=== PATIENT | male | born 1985 | race Caucasian/White ===

== ENCOUNTER 2017-09-10 07:02 | Inpatient (IN) ==
[2017-09-10] MEDS ORDERED: 0.9 % SODIUM CHLORIDE 1,000 ML IV ONE (07:12)
--- NOTE | 2017-09-10 07:49 | Emergency Department Note ---
Weakness HPI - General Chief complaint: Weakness Stated complaint: Weakness Time Seen by Provider: 09/10/17 07:31 Source: patient Mode of arrival: ambulatory Limitations: no limitations - History of Present Illness HPI Narrative: 31-year-old male who has been out hunting 2 of his friends. Complaining of fever and chills decreased appetite-cough slight productive. Temperature is 102.7. Appears somewhat dehydrated, dry lips and tongue. States he has been drinking a lot of liquids however. Taken Tylenol ibuprofen. Denies history and states he was sleeping all day yesterday. Denies any urgency frequency or dysuria. Been no nausea vomiting no diarrhea constipation problems no hematemesis no melena. Is been complaining of a headache and some slight pain in the posterior neck but no obvious nuchal rigidity noted. No evidence of petechiae. Patient put in isolation toe spinal tap performed. Has no major illnesses he is not diabetic does smoke three quarters of a pack of cigarettes a day he is currently on no medications. Patient is alert and oriented answering questions appropriately there are no neurologic findings - Related Data Home Medications Medication Instructions Recorded Confirmed No Known Home Meds [No Known Home 09/10/17 09/10/17 Meds] Allergies Allergy/AdvReac Type Severity Reaction Status Date / Time No Known Drug Allergies Allergy Verified 09/10/17 07:07 Review of Systems All systems ED: reviewed and negative except as stated. Constitutional: Reports: fever, chills Eyes: Denies: eye pain ENT ED: Denies: ear pain, throat pain Cardiovascular: Denies: chest pain, palpitations, dyspnea on exertion Respiratory: Reports: cough. Denies: dyspnea, hemoptysis, phlegm Gastrointestinal: Denies: abdominal pain, nausea, vomiting, diarrhea, constipation, hematemesis, melena Genitourinary: Denies: urgency, dysuria, frequency Musculoskeletal: Denies: back pain Integumentary: Denies: rash Neurological: Reports: headache. Denies: weakness, numbness, paresthesias, confusion, abnormal gait Psychiatric: Denies: anxiety, depression Endocrine: Denies: fatigue Hematological/Lymphatic: Denies: easy bleeding Allergic/Immunologic: Denies: facial swelling Past Medical History - Past Medical History Medical history: Reports: non-contributory Surgical history ED: Reports: non-contributory Family history: Reports: non-contributory - Social History smoking status: Current every day smoker Packs per day: 0.7 Alcohol use: Reports: Occasionally (only 2-3 beers over past two days, no etoh yesterday or today) Drug use: Reports: none Physical Exam - General Limitations: no limitations General appearance: malaise - Head Head exam: atraumatic, normocephalic - Eye Eye exam: Present: normal appearance, PERRL - ENT ENT exam: normal exam, normal oropharynx, mucous membranes dry - Neck Neck exam: Present: normal inspection, full ROM, trachea midline, tenderness. Absent: meningismus, lymphadenopathy - Chest Chest inspection: Present: normal inspection, symmetric chest wall rise. Absent : tenderness - Respiratory Respiratory exam: Present: normal lung sounds bilaterally. Absent: respiratory distress, wheezes - Cardiovascular Cardiovascular exam: Present: regular rate, normal rhythm. Absent: bradycardia , tachycardia - Abdominal Exam Abdominal exam: Present: soft, normal bowel sounds. Absent: distention, tenderness, guarding, rebound, rigidity - Extremities Exam Extremities exam: Present: normal inspection, full ROM. Absent: tenderness - Back Exam Back exam: Present: normal inspection, full ROM. Absent: tenderness - Expanded Neurological Exam Patient oriented to: Present: person, place, time Speech: Present: fluid speech Cranial nerves: EOM function (II, III, IV, ): Normal, facial sensation (V): Normal, facial palsy (VII): Normal, gag reflex (IX): Normal, spinal accessory function (XI): Normal, tongue deviation (XII): Normal Cerebellar function: finger to nose: Normal Motor strength - LUE: 5/5 Motor strength - RUE: 5/5 Motor strength - LLE: 5/5 Motor strength - RLE: 5/5 Upper motor neuron exam: Babinski sign: Absent bilaterally Sensory exam upper extremity: Normal: light touch Sensory exam lower extremity: Normal: light touch DTR: 2+: patellar (L), patellar (R) Coma Scale Eye Opening: Spontaneous Coma Scale Motor Response: Obeys Commands Coma Scale Verbal Response: Oriented Coma Scale Total: 15 - Psychiatric Psychiatric exam: Present: normal affect, normal mood - Skin Skin exam: Present: warm, dry Course Vital Signs Temperature 102.2 F H 09/10/17 07:03 Pulse Rate 83 09/10/17 07:03 Respiratory Rate 18 09/10/17 07:03 Blood Pressure 131/75 09/10/17 07:03 Pulse Oximetry (%) 96 09/10/17 07:03 Temperature 102.1 F H 09/10/17 08:12 Pulse Rate 86 09/10/17 08:12 Respiratory Rate 23 H 09/10/17 08:12 Blood Pressure 134/75 09/10/17 07:31 Pulse Oximetry (%) 97 09/10/17 08:12 Weakness - MDM Narrative Medical decision making narrative: RESULTS OF LAB TESTS. SPINAL TAP BEING PERFORMED. AWAIT CSF ANALYSIS pT TRANSFERRED TO CARE OF [facility] AT 0900 - Lab Data Result diagrams: 09/10/17 07:10 09/10/17 07:10 Lab Results 09/10/17 09/10/17 09/10/17 Range/Units 07:10 07:10 07:10 WBC 9.9 (4.5-11.0) K/mcL RBC 4.54 (4.50-5.90) M/mcL Hgb 14.8 (13.5-16.5) g/dL Hct 42.9 (41.0-55.0) % MCV 94.5 (80.0-100.0) fL MCH 32.6 (26.0-34.0) pg MCHC 34.5 (31.0-36.0) g/dL RDW 12.4 (11.5-14.5) % Plt Count 154 (140-440) K/mcL MPV 10.1 (7.4-10.4) fL Total Counted 100 Seg Neutrophils % 83 H (38-78) % Band Neutrophils % Not Reportable Lymphocytes % 12 L (15-49) % Monocytes % (Manual) 5 (1-12) % Platelet Estimate Normal (NORMAL) RBC Morphology Normal (NORMAL) VBG Lactic Acid 0.9 (0.5-2.2) mmol/L Sodium 135 (133-145) mmol/L Potassium 3.7 (3.3-5.1) mmol/L Chloride 96 (96-108) mmol/L Carbon Dioxide 23 (22-30) mmol/L Anion Gap 16.0 (8-16) BUN 8 (6-20) mg/dl Creatinine 0.8 (0.7-1.2) mg/dl GFR Calculation 119 Glucose 110 H (70-105) mg/dL Calcium 9.1 (8.6-10.4) mg/dl Total Bilirubin 0.7 (0.0-1.0) mg/dL AST 20 (0-37) U/l ALT 17 (0-40) U/l Alkaline Phosphatase 38 L (39-117) U/L Total Protein 7.5 (5.9-8.4) gm/dL Albumin 4.2 (3.2-5.2) gm/dL Globulin 3.3 (2.2-3.7) gm/dL Albumin/Globulin Ratio 1.3 (1.0-2.3) Disposition Pt seen by RESPITE CARE PROVIDER/PA only: No
[2017-09-10 07:58] LABS: Mean Cell Volume 94.5 fL (80.0-100.0); Mean Corpuscular HGB Conc 34.5 g/dL (31.0-36.0); Mean Corpuscular Hemoglobin 32.6 pg (26.0-34.0); Platelet Count 154 K/mcL (140-440); RBC 4.54 M/mcL (4.50-5.90); Red Cell Distribution Width 12.4 % (11.5-14.5)
[2017-09-10] MEDS ORDERED: ACETAMINOPHEN 325 MG TABLET PO ONE (08:08)
[2017-09-10 08:19] LABS: ALT/SGPT 17 U/l (0-40); Albumin 4.2 gm/dL (3.2-5.2); Albumin/Globulin Ratio 1.3 (1.0-2.3); Alkaline Phosphatase 38 U/L (39-117); Blood Urea Nitrogen 8 mg/dl (6-20)
[2017-09-10 08:26] LABS: Lymphocytes % 12 % (15-49); Monocytes % (Manual) 5 % (1-12); Platelet Estimate NORMAL (NORMAL); RBC Morphology NORMAL (NORMAL); Segmented Neutrophils % 83 % (38-78)
[2017-09-10] MEDS: 0.9 % SODIUM CHLORIDE 1,000 ML IV SCH ×3 (08:57→20:37)
--- NOTE | 2017-09-10 09:43 | XRay Report ---
CLINICAL INFORMATION: Cough and fever COMPARISON: None. FINDINGS: Heart is accentuated by right rotation, lordotic positioning and portable technique. It is within normal limits. Mediastinum and pulmonary vessels are normal. The lungs are clear. No effusions IMPRESSION: Negative Interpreted and Authenticated by: Brett Terrazas 09/10/17
--- NOTE | 2017-09-10 09:48 | XRay Report ---
CLINICAL INFORMATION: Fever, neck stiffness and lethargy - evaluate for meningitis TECHNIQUE: The procedure and risks including the possibility of bleeding, infection and CSF leak resulting in positional headache requiring blood patch were explained to the patient. He understood and wished to proceed. With the patient in prone position on the fluoroscopy table, the skin overlying the right L2 interspace was fluoroscopically marked, prepped and locally anesthetized with 1% lidocaine using a 25-gauge needle. A 22-gauge spinal needle was then advanced under fluoroscopy through the right L2 interlaminar space into the thecal sac. 9 cc of clear CSF was aspirated and sent for requested studies in three separate tubes. The needle was then removed. Patient tolerated procedure well. IMPRESSION: Successful fluoroscopic guided lumbar puncture yielding 9 cc of clear CSF. No apparent complication Interpreted and Authenticated by: Brett Terrazas 09/10/17
[2017-09-10] MEDS ORDERED: VANCOMYCIN 1,000 MG in 0.9 % SODIUM CHLORIDE 250 ML IV ONE (10:37)
[2017-09-10] MEDS ORDERED: cefTRIAXone 1 GM in DEXTROSE 5% IN WATER 50 ML IV ONE ×2 (10:37→13:45)
[2017-09-10 10:38] LABS: Glucose,CSF 67 mg/dL (45-75)
[2017-09-10 11:07] LABS: Appearance,CSF HAZY; Nucleated Cells,CSF 893 /cumm (0-5); Nucleated Cells,CSF 903 /cumm (0-5); Red Blood Cell,CSF 0 /cumm (0-1); Red Blood Cell,CSF 32 /cumm (0-1)
[2017-09-10 11:09] LABS: Lymphocytes,CSF 32 % (40-80); Monocytes,CSF 24 % (15-45); Neutrophils,CSF 44 % (0-6); Total Cell Ct,CSF 100
[2017-09-10 11:10] LABS: Lymphocytes,CSF 32 % (40-80); Monocytes,CSF 32 % (15-45); Neutrophils,CSF 36 % (0-6); Total Cell Ct,CSF 100
[2017-09-10 11:17] LABS: Appearance,Urine CLEAR; Bacteria,Urine 0 /hpf (0); Bilirubin,Urine NEG (NEG); Color,Urine YELLOW; Glucose,Urine (UA) NEGATIVE (NEG); Leukocyte Esterase,Urine NEG /uL (NEG); Mucus,Urine MANY /hpf (0); Nitrate,Urine NEG (NEG); Protein,Urine NEG (NEG); Specific Gravity,Urine 1.014 (1.000-1.035); Urine Blood 0.03 mg/dL (<0.03); Urine RBC 2 /hpf (0-1); Urine Squamous Epithelial Cell < 1 /hpf (0-4); Urine WBC 1 /hpf (0-4); Urobilinogen,Urine NEG (NEG)
[2017-09-10] MEDS: HYDROmorphone 2 MG/ML SYRINGE IV PRN ×2 (11:30→12:25)
--- NOTE | 2017-09-10 11:40 | Emergency Department Note ---
General Adult HPI - General Chief complaint: Weakness Stated complaint: Weakness Time Seen by Provider: 09/10/17 07:31 Source: patient Mode of arrival: ambulatory Limitations: no limitations - Related Data Home Medications Medication Instructions Recorded Confirmed No Known Home Meds [No Known Home 09/10/17 09/10/17 Meds] Allergies Allergy/AdvReac Type Severity Reaction Status Date / Time No Known Drug Allergies Allergy Verified 09/10/17 07:07 Review of Systems Constitutional: Reports: fever, chills Eyes: Denies: eye pain ENT ED: Denies: ear pain, throat pain Cardiovascular: Denies: chest pain, palpitations, dyspnea on exertion Respiratory: Reports: cough. Denies: dyspnea, hemoptysis, phlegm Gastrointestinal: Denies: abdominal pain, nausea, vomiting, diarrhea, constipation, hematemesis, melena Genitourinary: Denies: urgency, dysuria, frequency Musculoskeletal: Denies: back pain Integumentary: Denies: rash Neurological: Reports: headache. Denies: weakness, numbness, paresthesias, confusion, abnormal gait Psychiatric: Denies: anxiety, depression Endocrine: Denies: fatigue Hematological/Lymphatic: Denies: easy bleeding Allergic/Immunologic: Denies: facial swelling Past Medical History - Past Medical History Medical history: Reports: non-contributory Surgical history ED: Reports: non-contributory - Social History smoking status: Current every day smoker Alcohol use: Reports: Occasionally (only 2-3 beers over past two days, no etoh yesterday or today) Drug use: Reports: none Physical Exam - General Limitations: no limitations General appearance: malaise Course Vital Signs Temperature 102.2 F H 09/10/17 07:03 Pulse Rate 83 09/10/17 07:03 Respiratory Rate 18 09/10/17 07:03 Blood Pressure 131/75 09/10/17 07:03 Pulse Oximetry (%) 96 09/10/17 07:03 Temperature 100.2 F H 09/10/17 09:37 Pulse Rate 67 09/10/17 09:47 Respiratory Rate 23 H 09/10/17 08:12 Blood Pressure 95/56 09/10/17 09:31 Pulse Oximetry (%) 94 09/10/17 09:47 Medical Decision Making - [facility] Narrative Medical decision making narrative: This patient has meningitis with a good chance that it may be bacterial. There were some gram-positive cocci seen on Gram stain. BC count was 900. Protein was elevated at 67. Patient has received vancomycin and Rocephin and will be admitted to the ICU by the hospitalist. - Lab Data Lab results reviewed: Yes I reviewed the patient's lab results. Result diagrams: 09/10/17 07:10 09/10/17 07:10 Lab Results 09/10/17 09/10/17 09/10/17 Range/Units 07:10 07:10 07:10 WBC 9.9 (4.5-11.0) K/mcL RBC 4.54 (4.50-5.90) M/mcL Hgb 14.8 (13.5-16.5) g/dL Hct 42.9 (41.0-55.0) % MCV 94.5 (80.0-100.0) fL MCH 32.6 (26.0-34.0) pg MCHC 34.5 (31.0-36.0) g/dL RDW 12.4 (11.5-14.5) % Plt Count 154 (140-440) K/mcL MPV 10.1 (7.4-10.4) fL Total Counted 100 Seg Neutrophils % 83 H (38-78) % Band Neutrophils % Not Reportable Lymphocytes % 12 L (15-49) % Monocytes % (Manual) 5 (1-12) % Platelet Estimate Normal (NORMAL) RBC Morphology Normal (NORMAL) VBG Lactic Acid 0.9 (0.5-2.2) mmol/L Sodium 135 (133-145) mmol/L Potassium 3.7 (3.3-5.1) mmol/L Chloride 96 (96-108) mmol/L Carbon Dioxide 23 (22-30) mmol/L Anion Gap 16.0 (8-16) BUN 8 (6-20) mg/dl Creatinine 0.8 (0.7-1.2) mg/dl GFR Calculation 119 Glucose 110 H (70-105) mg/dL Calcium 9.1 (8.6-10.4) mg/dl Total Bilirubin 0.7 (0.0-1.0) mg/dL AST 20 (0-37) U/l ALT 17 (0-40) U/l Alkaline Phosphatase 38 L (39-117) U/L Total Protein 7.5 (5.9-8.4) gm/dL Albumin 4.2 (3.2-5.2) gm/dL Globulin 3.3 (2.2-3.7) gm/dL Albumin/Globulin Ratio 1.3 (1.0-2.3) Urine Color Urine Appearance Urine pH (5.0-9.0) Ur Specific [place] (1.000-1.035) Urine Protein (NEG) mg/dL Urine Glucose (UA) (NEG) mg/dL Urine Ketones (NEG) mg/dL Urine Occult Blood (<0.03) mg/dL Urine Nitrate (NEG) Urine Bilirubin (NEG) mg/dL Urine Urobilinogen (NEG) mg/dL Ur Leukocyte Esterase (NEG) /uL Urine RBC (0-1) /hpf Urine WBC (0-4) /hpf Ur Squamous Epith Cells (0-4) /hpf Urine Bacteria (0) /hpf Urine Mucus (0) /hpf Ur Culture Indicated? CSF Source CSF Appearance CSF Color CSF RBC (0-1) /cumm CSF Diff Total Count CSF Total Nucleated Auto (0-5) /cumm CSF Neutrophils (0-6) % CSF Lymphocytes (40-80) % CSF Reactive Lymphs CSF Monocytes (15-45) % CSF Eosinophils % CSF Basophils CSF Macrophages CSF Plasma Cells CSF Diff Comment CSF Glucose (45-75) mg/dL CSF Total Protein (15.0-45) mg/dL 09/10/17 09/10/17 09/10/17 Range/Units 08:59 08:59 10:45 WBC (4.5-11.0) K/mcL RBC (4.50-5.90) M/mcL Hgb (13.5-16.5) g/dL Hct (41.0-55.0) % MCV (80.0-100.0) fL MCH (26.0-34.0) pg MCHC (31.0-36.0) g/dL RDW (11.5-14.5) % Plt Count (140-440) K/mcL MPV (7.4-10.4) fL Total Counted Seg Neutrophils % (38-78) % Band Neutrophils % Lymphocytes % (15-49) % Monocytes % (Manual) (1-12) % Platelet Estimate (NORMAL) RBC Morphology (NORMAL) VBG Lactic Acid (0.5-2.2) mmol/L Sodium (133-145) mmol/L Potassium (3.3-5.1) mmol/L Chloride (96-108) mmol/L Carbon Dioxide (22-30) mmol/L Anion Gap (8-16) BUN (6-20) mg/dl Creatinine (0.7-1.2) mg/dl GFR Calculation Glucose (70-105) mg/dL Calcium (8.6-10.4) mg/dl Total Bilirubin (0.0-1.0) mg/dL AST (0-37) U/l ALT (0-40) U/l Alkaline Phosphatase (39-117) U/L Total Protein (5.9-8.4) gm/dL Albumin (3.2-5.2) gm/dL Globulin (2.2-3.7) gm/dL Albumin/Globulin Ratio (1.0-2.3) Urine Color Yellow Urine Appearance Clear Urine pH 6.0 (5.0-9.0) Ur Specific [place] 1.014 (1.000-1.035) Urine Protein Neg (NEG) mg/dL Urine Glucose (UA) Negative (NEG) mg/dL Urine Ketones 80 A (NEG) mg/dL Urine Occult Blood 0.03 A (<0.03) mg/dL Urine Nitrate Neg (NEG) Urine Bilirubin Neg (NEG) mg/dL Urine Urobilinogen Neg (NEG) mg/dL Ur Leukocyte Esterase Neg (NEG) /uL Urine RBC 2 H (0-1) /hpf Urine WBC 1 (0-4) /hpf Ur Squamous Epith Cells < 1 (0-4) /hpf Urine Bacteria 0 (0) /hpf Urine Mucus Many A (0) /hpf Ur Culture Indicated? No CSF Source 1 3 CSF Appearance Hazy Hazy CSF Color Colorless Colorless CSF RBC 32 H 0 (0-1) /cumm CSF Diff Total Count 100 100 CSF Total Nucleated Auto 903 H 893 H (0-5) /cumm CSF Neutrophils 44 H 36 H (0-6) % CSF Lymphocytes 32 L 32 L (40-80) % CSF Reactive Lymphs Not Reportable Not Reportable CSF Monocytes 24 32 (15-45) % CSF Eosinophils % Not Reportable Not Reportable CSF Basophils Not Reportable Not Reportable CSF Macrophages Not Reportable Not Reportable CSF Plasma Cells Not Reportable Not Reportable CSF Diff Comment Not Reportable Not Reportable CSF Glucose 67 (45-75) mg/dL CSF Total Protein 64 H (15.0-45) mg/dL Disposition Pt seen by HEEL BRUSHER/PA only: No Clinical Impression: Meningitis Disposition: Xfer As Inpt ([facility]) Condition: Good Time of Disposition: 11:40
--- NOTE | 2017-09-10 12:26 | Internal Med History&Physical ---
Medical - H&P: HPI Patient information: Note initiated : 09/10/17 at 12:22 pm Service Date, if different from initiated Date: [] Patient: Riley Lainez 31 y/o M admitted on for Weakness. Chief Complaint: Headache, fever, weakness History of present illness: Mr. Lainez is a 31 year old M with no past medical history who presents from a camping trip with 3 days of systemic illness. History is obtained in interviewing the patient, discussing with his colleagues were present in the ED. Patient started getting sick about 3 days ago. He was aching with generalized myalgias, had a severe headache, to 9/10 in intensity. He felt feverish while he was out camping. He had a documented fever to over 102 in the ED. This morning he continued to be feverish, complaining of headache and was more confused and his friends brought him in to be evaluated. He had been camping in [place] hunting with several friends for about 1 week. He had been well up until Thursday. He continues to complain of headache and some neck stiffness, particularly with rotation of the neck. He feels dehydrated, those noted some increased urine output. He's had no nausea or vomiting, no abdominal pain. Has had no diarrhea. He's had no rashes, no ecchymoses. He did help packout a deer, but does not recall any tick bites. No one else on the trip was ill. He has no history of diabetes, chronic liver disease, immunosuppressed state. Location: head and systemic. Severity: severe. Quality: aching. Timing: Onset Thursday. Duration: continuous since onset. Assoc sx: fever. The emergency department, the patient underwent lumbar puncture showing between 800 and 900 nucleated cells (depending upon tube) with polys, lymphocytes and monocytes. Protein is elevated at 64, glucose is normal. The fluid was hazy in appearance. Stain shows gram-positive cocci (no comment on diplococci). He is being admitted for treatment of meningitis. - Constitutional Constitutional: Present: anorexia, fatigue, fever(s), lethargy, malaise - EENT Ears: Present: as per HPI. Absent: decreased hearing Nose, mouth and throat: Present: headache(s), neck pain. Absent: sinus pain, sinus pressure, sore throat - Cardiovascular Cardiovascular: Absent: chest pain, edema, palpatations - Respiratory Respiratory: Absent: cough, dyspnea, chest congestion - Gastrointestinal Gastrointestinal: Absent: abdominal pain, diarrhea, nausea, vomiting - Genitourinary Genitourinary: Present: urinary frequency. Absent: dysuria - Musculoskeletal Musculoskeletal: Present: myalgias, neck pain - Integumentary Integumentary: Absent: new lesions, rash, unusual bruising - Neurological Neurological: Present: confusion, headache(s), weakness (generalized). Absent: convulsions, focal weakness, sensory deficit - Endocrine Endocrine: Present: fatigue - Hematologic/Lymphatic Hematologic/Lymphatic: Absent: easy bleeding, easy bruising Medical - H&P: PMH Medical history: Fracture of arm Surgical history: None Pertinent family history: No DM, CAD, immunodeficiency Social history: Lives in [place], [place]. He was in the area of [place]. Smokes 1 pack per day. Has occasional alcohol, last drink a couple days ago. Medical - H&P: Meds Home Medications Medication Instructions Recorded Confirmed Type No Known Home Meds [No Known Home 09/10/17 09/10/17 History Meds] Allergies Allergy/AdvReac Type Severity Reaction Status Date / Time No Known Drug Allergies Allergy Verified 09/10/17 07:07 Medical - H&P: Exam - Constitutional Vitals: Temp Pulse Resp BP Pulse Ox 100.2 F H 67 23 H 95/56 94 09/10/17 09:37 09/10/17 09:47 09/10/17 08:12 09/10/17 09:31 09/10/17 09:47 General appearance: average body habitus, mild distress (ill appearing) - Head Head exam: Present: atraumatic, normal inspection - Eye Eye exam: Present: EOMI, PERRL. Absent: conjunctival injection, scleral icterus - ENT ENT exam: Present: mucous membranes moist, normal oropharynx - Neck Neck exam: Present: meningismus (mild), tenderness. Absent: lymphadenopathy, thyromegaly - Respiratory Respiratory exam: Present: normal respiratory exam. Absent: accessory muscle use, respiratory distress, rhonchi, wheezes - Cardiovascular Cardiovascular exam: Present: normal rate and rhythm. Absent: diastolic murmur , gallop, rubs, systolic murmur - GI/Abdominal GI/Abdominal exam: Present: normal bowel sounds, soft. Absent: distended, organomegaly, rebound, tenderness - Extremities Exam Extremities exam: Present: full ROM, normal inspection, neurovascular intact. Absent: calf tenderness, joint swelling, pedal edema - Back Exam Back exam: Present: normal inspection. Absent: CVA tenderness (L), CVA tenderness (R) - Neurological Exam Neurological exam: Present: CN II-XII intact, oriented X3, reflexes normal. Absent: alert (mildly drowsy), motor sensory deficit - Expanded Neurological Exam DTR: bicep (L): 2+, bicep (R): 2+, brachioradialis (L): 2+, brachioradialis (R) : 2+, patellar (L): 2+, patellar (R): 2+ Coma Scale Eye Opening: Spontaneous Coma Scale Motor Response: Obeys Commands Coma Scale Verbal Response: Oriented Coma Scale Total: 15 - Skin Skin exam: Absent: abrasion, diaphoretic, mottled, petechiae Additional comments: No purpura, no bulls-eye rashes, no exanthem Medical - H&P: Reslt - Labs CBC & Chem 7: 09/10/17 07:10 09/10/17 07:10 Labs: Short CBC 09/10/17 Range/Units 07:10 WBC 9.9 (4.5-11.0) K/mcL Hgb 14.8 (13.5-16.5) g/dL Hct 42.9 (41.0-55.0) % Plt Count 154 (140-440) K/mcL BMP 09/10/17 07:10 Sodium 135 Potassium 3.7 Chloride 96 Carbon Dioxide 23 BUN 8 Creatinine 0.8 Glucose 110 H Calcium 9.1 Liver Function 09/10/17 Range/Units 07:10 Total Bilirubin 0.7 (0.0-1.0) mg/dL AST 20 (0-37) U/l ALT 17 (0-40) U/l Alkaline Phosphatase 38 L (39-117) U/L Albumin 4.2 (3.2-5.2) gm/dL Urine 09/10/17 Range/Units 10:45 Urine Color Yellow Urine Appearance Clear Urine pH 6.0 (5.0-9.0) Ur Specific [place] 1.014 (1.000-1.035) Urine Protein Neg (NEG) mg/dL Urine Glucose (UA) Negative (NEG) mg/dL CSF, tube 1, hazy, colorless, 903 nucleated cells, 32 red cells, 44% neutrophils , 32% lymphocytes, 24% neutrophils. Glucose 67, total protein 64. CSF, tube 3, 893 nucleated cells, no red cells, 36% neutrophils, 32% lymphocytes , 32% monocytes. CSF Gram stain, many polys, many mononuclear white cells, rare gram-positive cocci. Discussed with the micro-lab, these are gram-positive cocci in pairs. - Imaging and Cardiology Chest x-ray Status: image reviewed by me Additional comments: IMPRESSION: Negative Medical - H&P: A/P (1) Meningitis Problem details: GPC on gram stain Current visit: Yes Status: Acute - Narrative A/P Narrative: 31-year-old male presents with 3 days of fever, myalgias, headache, neck stiffness. 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 Meningitis. Gram-positive cocci seen on Gram stain. Glucose not significantly decrease, protein only mildly elevated, patient is ill but mentating and neurologic intact. Given these findings and timeframe, possible pneumococcal meningitis, though still covering for meningococcal disease. Patient has been out hunting, no known tick exposures. Given results of Gram stain, less likely to be viral. He is receiving vancomycin and ceftriaxone in the emergency department. He does not have chronic liver disease, diabetes or other immunosuppressive state to suggest listeria as a cause. Plan: -Admission, telemetry status to the ICU -Continue with ceftriaxone, 2 g IV every 12 hours -Continue with vancomycin dose per pharmacy -We will also cover with doxycycline until culture results are back, on the off chance this could be a tick borne illness -Follow-up cultures -If meningococcal, public health will need to reach contacts. His 2 friends were given an Rx for ciprofloxacin in the ED, but there were several others who had left camp by the time he became ill on Thursday. Prophylaxis: PPI, Lovenox CODE STATUS is full code
[2017-09-10] MEDS ORDERED: VANCOMYCIN PER PHARMACY IV SCH (13:30)
[2017-09-10] MEDS ORDERED: ONDANSETRON 4 MG/2 ML VIAL IV PRN (13:30)
[2017-09-10] MEDS ORDERED: ACETAMINOPHEN 325 MG TABLET PO PRN (13:30)
[2017-09-10] MEDS: DOXYCYCLINE 100 MG in DEXTROSE 5% IN WATER 100 ML IV SCH ×2 (14:31→22:17)
[2017-09-10] MEDS: HYDROcodone/APAP 5/325MG TABLET PO PRN (17:30)
[2017-09-10] MEDS ORDERED: IBUPROFEN 600 MG TABLET PO ONE (19:47)
[2017-09-10] MEDS: IBUPROFEN 600 MG TABLET PO ONE ×2 (19:48→20:20)
[2017-09-10] MEDS: VANCOMYCIN 1,500 MG in 0.9 % SODIUM CHLORIDE 500 ML IV SCH (21:20)
[2017-09-10] MEDS: cefTRIAXone 2 GM in DEXTROSE 5% IN WATER 50 ML IV SCH (21:20)
[2017-09-11] MEDS: 0.9 % SODIUM CHLORIDE 1,000 ML IV SCH ×4 (02:15→22:00)
[2017-09-11] MEDS: ACETAMINOPHEN 1,000 MG/100 ML BOTTLE IV PRN ×2 (04:10→21:59)
[2017-09-11 05:20] LABS: Mean Cell Volume 97.1 fL (80.0-100.0); Mean Corpuscular HGB Conc 34.2 g/dL (31.0-36.0); Mean Corpuscular Hemoglobin 33.2 pg (26.0-34.0); Platelet Count 131 K/mcL (140-440); RBC 4.06 M/mcL (4.50-5.90); Red Cell Distribution Width 12.6 % (11.5-14.5)
[2017-09-11] MEDS ORDERED: KETOROLAC 15 MG/ML VIAL ONE (05:35)
[2017-09-11 05:41] LABS: ALT/SGPT 15 U/l (0-40); Albumin 3.6 gm/dL (3.2-5.2); Albumin/Globulin Ratio 1.1 (1.0-2.3); Alkaline Phosphatase 40 U/L (39-117); Blood Urea Nitrogen 6 mg/dl (6-20)
[2017-09-11 05:59] LABS: Band Neutrophils % 2 % (0-10); Basophils % (Manual) 1 % (0-2); Lymphocytes % 32 % (15-49); Monocytes % (Manual) 12 % (1-12); Platelet Estimate DECREASED (NORMAL); RBC Morphology NORMAL (NORMAL); Segmented Neutrophils % 53 % (38-78)
[2017-09-11] MEDS: HYDROcodone/APAP 5/325MG TABLET PO PRN ×2 (06:57→15:01)
[2017-09-11] MEDS: PANTOPRAZOLE 40 MG TABLET PO SCH (07:45)
[2017-09-11] MEDS: ENOXAPARIN 40 MG/0.4 ML SYRINGE SQ SCH (09:28)
[2017-09-11] MEDS: DOXYCYCLINE 100 MG in DEXTROSE 5% IN WATER 100 ML IV SCH ×2 (09:29→21:25)
[2017-09-11] MEDS: NICOTINE 14 MG PATCH TOPICAL SCH (09:31)
[2017-09-11] MEDS ORDERED: FLU VACC QS2017-18 36MOS UP/PF 60 MCG/0.5 ML SYRINGE IM ONE (10:00)
[2017-09-11] MEDS: cefTRIAXone 2 GM in DEXTROSE 5% IN WATER 50 ML IV SCH ×2 (10:46→20:15)
[2017-09-11] MEDS: KETOROLAC 15 MG/ML VIAL IV PRN ×3 (10:53→22:15)
[2017-09-11] MEDS: VANCOMYCIN 1,500 MG in 0.9 % SODIUM CHLORIDE 500 ML IV SCH ×2 (11:23→20:14)
--- NOTE | 2017-09-11 11:43 | Internal Med Progress Note ---
Medical - PN: Subj Patient information: Note initiated : 09/11/17 at 11:36 am Service Date, if different from initiated Date: [] Patient: Riley Lainez 31 y/o M admitted on 09/10/17 for Weakness/Meningitis. Chief Complaint: [] Interval history: Mr. Lainez is a 31 year old M with no past medical history who presents from a camping trip with 3 days of systemic illness. History is obtained in interviewing the patient, discussing with his colleagues were present in the ED. Patient started getting sick about 3 days ago. He was aching with generalized myalgias, had a severe headache, to 9/10 in intensity. He felt feverish while he was out camping. He had a documented fever to over 102 in the ED. This morning he continued to be feverish, complaining of headache and was more confused and his friends brought him in to be evaluated. He had been camping in [place] with several friends for about 1 week. He had been well up until Thursday. He continues to complain of headache and some neck stiffness, particularly with rotation of the neck. He feels dehydrated, those noted some increased urine output. He's had no nausea or vomiting, no abdominal pain. Has had no diarrhea. He's had no rashes, no ecchymoses. He did help packout a deer, but does not recall any tick bites. No one else on the trip was ill. He has no history of diabetes, chronic liver disease, immunosuppressed state. Location: head and systemic. Severity: severe. Quality: aching. Timing: Onset Thursday. Duration: continuous since onset. Assoc sx: fever. The emergency department, the patient underwent lumbar puncture showing between 800 and 900 nucleated cells (depending upon tube) with polys, lymphocytes and monocytes. Protein is elevated at 64, glucose is normal. The fluid was hazy in appearance. Stain shows gram-positive cocci (no comment on diplococci). He is being admitted for treatment of meningitis. September 11 Patient seen examined, no acute overnight events, reamined febrile but this AM is better, on IV tylenol, and cooling blankets. remains on broad sepctrum abx, clinically better still has headache and some photophobia, but mental status is better as per nursing and patients friends. csf microbiology pending. labs reviewed, wbc mildly elevated today. Pertinent ROS: present headache, no dizziness Denies chest pain, palpitations Denies cough or shortness of breath Denies abdominal pain, nausea or vomiting. - Constitutional Vitals: Vital Signs Temp Pulse Resp BP Pulse Ox 98.5 F 54 L 16 151/90 99 09/11/17 11:08 09/11/17 11:08 09/11/17 11:08 09/11/17 11:08 09/11/17 11:08 Period Temp Pulse Resp BP Sys/Knowles Pulse Ox Last 24 Hr 97.9 F-103.5 F 54-74 15- 109-151/58-90 95-100 Intake and Output 09/10/17 09/11/17 09/11/17 21:59 05:59 13:59 Intake Total 1470 / 1470 1750 / 1750 1274 / 1274 Output Total 1949 1225 / 1225 325 / 325 Balance -480 / -480 525 / 525 949 / 949 Weight 201 lb 14.4 oz Intake & Output: Intake & Output 09/10/17 09/11/17 09/11/17 21:59 05:59 13:59 Intake Total 1470 / 1470 1750 / 1750 1274 / 1274 Output Total 1949 1225 / 1225 325 / 325 Balance -480 / -480 525 / 525 949 / 949 Weight 201 lb 14.4 oz Intake: IV 200 / 200 1700 / 1700 1054 / 1054 Sodium Chloride 0.9% 1,000 ml @ 1000 / 1000 904 / 904 125 mls/hr IV .Q8H [facility] Rx#: [id number] Vibramycin 100 mg In Dextrose 5 100 / 100 100 / 100 100 / 100 % in Water 100 ml @ 100 mls/hr IV Q12H [facility] Rx#:[id number] Vancomycin 1,500 mg In Sodium 500 / 500 Chloride 0.9% 500 ml @ 333.3 mls/hr IV Q12H [facility] Rx#: [id number] Rocephin 1 gm In Dextrose 5% in 50 / 50 Water 50 ml @ 100 mls/hr IV ONCE ONE Rx#:[id number] Rocephin 2 gm In Dextrose 5% in 50 / 50 50 / 50 Water 50 ml @ 100 mls/hr IV Q12H [facility] Rx#:[id number] Oral 420 / 420 50 / 50 220 / 220 IV - Manual Only 850 / 850 Output: Void Amount 1950 / 1950 1225 / 1225 325 / 325 Other: Meal Breakfast Percent of Meal Consumed 100% # Bowel Movements 0 Exam: Constitutional; Afebrile, cooperative, alert, not in distress. Eyes- No icterus, , No periorbital swelling Ears- Ext ear normal, hearing normal to conversation. Neck- Midline trachea, supple Respiratory system: Air Entry equal on both sides, No crackles or wheezing, no rhonchi. CVS- Rate rhythm regular, S1,S2 heard, no gallop, no rub. 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 Medical - PN: Obj Da - Labs CBC & Chem 7: 09/11/17 04:00 09/11/17 04:00 Labs: Abnormal Lab Results 09/11/17 09/10/17 09/10/17 04:00 10:45 08:59 WBC 11.3 H RBC 4.06 L Hct 39.4 L Plt Count 131 L Seg Neutrophils % Lymphocytes % Platelet Estimate Decreased A Glucose Alkaline Phosphatase Urine Ketones 80 A Urine Occult Blood 0.03 A Urine RBC 2 H Urine Mucus Many A CSF RBC CSF Total Nucleated Auto 893 H CSF Neutrophils 36 H CSF Lymphocytes 32 L CSF Total Protein 09/10/17 09/10/17 09/10/17 08:59 07:10 07:10 WBC RBC Hct Plt Count Seg Neutrophils % 83 H Lymphocytes % 12 L Platelet Estimate Glucose 110 H Alkaline Phosphatase 38 L Urine Ketones Urine Occult Blood Urine RBC Urine Mucus CSF RBC 32 H CSF Total Nucleated Auto 903 H CSF Neutrophils 44 H CSF Lymphocytes 32 L CSF Total Protein 64 H Meds: Medications Hydrocodone Bitart/Acetaminophen ([place] 5/325mg) 1 tab PO Q4HP PRN PRN Reason: Pain Last Admin: 09/11/17 06:57 Dose: 1 tab Enoxaparin Sodium (Lovenox) 40 mg SQ DAILY [facility] [place] Last Admin: 09/11/17 09:28 Dose: 40 mg Ceftriaxone Sodium 2 gm/ (Dextrose) 50 mls @ 100 mls/hr IV Q12H [facility] Last Infusion: 09/11/17 11:20 Dose: Infused Doxycycline Hyclate 100 mg/ (Dextrose) 100 mls @ 100 mls/hr IV Q12H [facility] [place] Last Infusion: 09/11/17 10:30 Dose: Infused Sodium Chloride (Sodium Chloride 0.9%) 1,000 mls @ 125 mls/hr IV .Q8H [facility] [place] Last Infusion: 09/11/17 11:28 Dose: 125 mls/hr Vancomycin HCl 1,500 mg/ (Sodium Chloride) 500 mls @ 333.3 mls/hr IV Q12H [facility] [place] Last Admin: 09/11/17 11:23 Dose: 250 mls/hr Acetaminophen (Ofirmev) 1,000 mg in 100 mls @ 200 mls/hr IV Q6HP PRN PRN Reason: PAIN/FEVER > 101 Last Infusion: 09/11/17 04:40 Dose: Infused Ketorolac Tromethamine (Toradol) 15 mg IV Q6 PRN PRN Reason: headache Stop: 09/12/17 18:01 Last Admin: 09/11/17 10:53 Dose: 15 mg Morphine Sulfate (Morphine) 2 mg IV Q2HP PRN PRN Reason: Pain Last Admin: 09/10/17 22:16 Dose: 2 mg Nicotine (Nicoderm) 14 mg TOPICAL DAILY@1000 [facility] [place] Last Admin: 09/11/17 09:31 Dose: Not Given Ondansetron HCl (Zofran) 4 mg IV Q4HP PRN PRN Reason: Nausea And Vomiting Pantoprazole Sodium (Protonix) 40 mg PO QAMAC [facility] [place] Last Admin: 09/11/17 07:45 Dose: 40 mg Vancomycin HCl (Vancomycin Per Pharmacy) 1 order IV UD [facility] Medical - PN: A/P - Time Spent With Patient Total time spent is greater than 50% in coordination of care (as documented) at patient's floor/unit and/or counseling patient: - Narrative A/P Narrative: A/P Acute Bacterial Meningitis Sepsis Bardycardia Plan Treat with vanco/ rocephin and doxy for now, await culture results, patient has gpc in pairs on gram stain. descalate abx as per culture, no e/o meningococcus. clinically improving check tsh for low hr, likely strong vagal response in young individual, improves with activity and normal bp. dvt enoxaparin full code Medical - PN: Qual - Stroke Symptom Onset Unknown: No - VTE Deep Vein Thrombosis/Pulmonary Embolism Present on Admission: No
[2017-09-12] MEDS: HYDROcodone/APAP 5/325MG TABLET PO PRN ×4 (02:20→19:28)
[2017-09-12] MEDS: ACETAMINOPHEN 1,000 MG/100 ML BOTTLE IV PRN (04:31)
[2017-09-12] MEDS: 0.9 % SODIUM CHLORIDE 1,000 ML IV SCH ×4 (07:12→20:09)
[2017-09-12] MEDS: PANTOPRAZOLE 40 MG TABLET PO SCH (07:51)
[2017-09-12] MEDS ORDERED: MAGNESIUM HYDROXIDE 30 ML ORAL.SUSP PO PRN ×2 (08:03→13:30)
--- NOTE | 2017-09-12 08:16 | Internal Med Progress Note ---
Medical - PN: Subj Patient information: Note initiated : 09/12/17 at 8:13 am Service Date, if different from initiated Date: [] Patient: Riley Lainez 31 y/o M admitted on 09/10/17 for Weakness/Meningitis. Chief Complaint: [] Interval history: Mr. Lainez is a 31 year old M with no past medical history who presents from a camping trip with 3 days of systemic illness. History is obtained in interviewing the patient, discussing with his colleagues were present in the ED. Patient started getting sick about 3 days ago. He was aching with generalized myalgias, had a severe headache, to 9/10 in intensity. He felt feverish while he was out camping. He had a documented fever to over 102 in the ED. This morning he continued to be feverish, complaining of headache and was more confused and his friends brought him in to be evaluated. He had been camping in [place] with several friends for about 1 week. He had been well up until Thursday. He continues to complain of headache and some neck stiffness, particularly with rotation of the neck. He feels dehydrated, those noted some increased urine output. He's had no nausea or vomiting, no abdominal pain. Has had no diarrhea. He's had no rashes, no ecchymoses. He did help packout a deer, but does not recall any tick bites. No one else on the trip was ill. He has no history of diabetes, chronic liver disease, immunosuppressed state. Location: head and systemic. Severity: severe. Quality: aching. Timing: Onset Thursday. Duration: continuous since onset. Assoc sx: fever. The emergency department, the patient underwent lumbar puncture showing between 800 and 900 nucleated cells (depending upon tube) with polys, lymphocytes and monocytes. Protein is elevated at 64, glucose is normal. The fluid was hazy in appearance. Stain shows gram-positive cocci (no comment on diplococci). He is being admitted for treatment of meningitis. September 11 Patient seen examined, no acute overnight events, reamined febrile but this AM is better, on IV tylenol, and cooling blankets. remains on broad sepctrum abx, clinically better still has headache and some photophobia, but mental status is better as per nursing and patients friends. csf microbiology pending. labs reviewed, wbc mildly elevated today. September 12 Patient seen examined, sitting comfortably in the chair having breakfast, complaints of headache and some photophobia but no other complaints had some constipation and prn milk of mag given. Patient labs reviewed wbc 9.2, improved from yesterday rest unremarkable csf culture still pending Pt remains febrile with Tmax of 102.3 this AM, on prn meds for same ok to d/c isolation Pertinent ROS: present headache, Denies chest pain, palpitations Denies cough or shortness of breath Denies abdominal pain, nausea or vomiting. - Constitutional Vitals: Vital Signs Temp Pulse Resp BP Pulse Ox 99.5 F H 68 20 144/98 97 09/12/17 05:30 09/11/17 20:00 09/12/17 04:00 09/12/17 04:00 09/12/17 04:00 Period Temp Pulse Resp BP Sys/Knowles Pulse Ox Last 24 Hr 98.1 F-102.3 F 54-68 16-20 114-151/74-98 93-100 Intake and Output 09/11/17 09/12/17 09/12/17 21:59 05:59 13:59 Intake Total 2366 / 2366 350 / 350 1000 / 1000 Output Total 1025 / 1025 325 / 325 Balance 1341 / 1341 25 / 25 1000 / 1000 Weight 207 lb 12.8 oz Intake & Output: Intake & Output 09/11/17 09/12/17 09/12/17 21:59 05:59 13:59 Intake Total 2366 / 2366 350 / 350 1000 / 1000 Output Total 1025 / 1025 325 / 325 Balance 1341 / 1341 25 / 25 1000 / 1000 Weight 207 lb 12.8 oz Intake: IV 1546 / 1546 300 / 300 1000 / 1000 Sodium Chloride 0.9% 1,000 ml @ 996 / 996 1000 / 1000 125 mls/hr IV .Q8H [facility] Rx#: [id number] Vibramycin 100 mg In Dextrose 5 100 / 100 % in Water 100 ml @ 100 mls/hr IV Q12H [facility] Rx#:[id number] Vancomycin 1,500 mg In Sodium 500 / 500 Chloride 0.9% 500 ml @ 333.3 mls/hr IV Q12H [facility] Rx#: [id number] Rocephin 2 gm In Dextrose 5% in 50 / 50 Water 50 ml @ 100 mls/hr IV Q12H [facility] Rx#:[id number] Oral 820 / 820 50 / 50 Output: Void Amount 1025 / 1025 325 / 325 Other: Meal Dinner Percent of Meal Consumed 50% Feeding Ability Independent Exam: Constitutional; Afebrile, cooperative, alert, not in distress. Eyes- No icterus, , No periorbital swelling Ears- Ext ear normal, hearing normal to conversation. Neck- Midline trachea, supple Respiratory system: Air Entry equal on both sides, No crackles or wheezing, no rhonchi. CVS- Rate rhythm regular, S1,S2 heard, no gallop, no rub. 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 Medical - PN: Obj Da - Labs CBC & Chem 7: 09/11/17 04:00 09/11/17 04:00 Labs: Abnormal Lab Results 09/11/17 09/10/17 09/10/17 04:00 10:45 08:59 WBC 11.3 H RBC 4.06 L Hct 39.4 L Plt Count 131 L Seg Neutrophils % Lymphocytes % Platelet Estimate Decreased A Glucose Alkaline Phosphatase Urine Ketones 80 A Urine Occult Blood 0.03 A Urine RBC 2 H Urine Mucus Many A CSF RBC CSF Total Nucleated Auto 893 H CSF Neutrophils 36 H CSF Lymphocytes 32 L CSF Total Protein 09/10/17 09/10/17 09/10/17 08:59 07:10 07:10 WBC RBC Hct Plt Count Seg Neutrophils % 83 H Lymphocytes % 12 L Platelet Estimate Glucose 110 H Alkaline Phosphatase 38 L Urine Ketones Urine Occult Blood Urine RBC Urine Mucus CSF RBC 32 H CSF Total Nucleated Auto 903 H CSF Neutrophils 44 H CSF Lymphocytes 32 L CSF Total Protein 64 H Meds: Medications Hydrocodone Bitart/Acetaminophen ([place] 5/325mg) 1 tab PO Q4HP PRN PRN Reason: Pain Last Admin: 09/12/17 02:20 Dose: 1 tab Enoxaparin Sodium (Lovenox) 40 mg SQ DAILY [facility] Last Admin: 09/11/17 09:28 Dose: 40 mg Ceftriaxone Sodium 2 gm/ (Dextrose) 50 mls @ 100 mls/hr IV Q12H [facility] Last Infusion: 09/11/17 20:45 Dose: Infused Doxycycline Hyclate 100 mg/ (Dextrose) 100 mls @ 100 mls/hr IV Q12H [facility] Last Infusion: 09/11/17 22:25 Dose: Infused Sodium Chloride (Sodium Chloride 0.9%) 1,000 mls @ 125 mls/hr IV .Q8H [facility] Last Admin: 09/12/17 07:12 Dose: 125 mls/hr Vancomycin HCl 1,500 mg/ (Sodium Chloride) 500 mls @ 333.3 mls/hr IV Q12H [facility] Last Infusion: 09/11/17 21:45 Dose: Infused Acetaminophen (Ofirmev) 1,000 mg in 100 mls @ 200 mls/hr IV Q6HP PRN PRN Reason: PAIN/FEVER > 101 Last Infusion: 09/12/17 05:01 Dose: Infused Ketorolac Tromethamine (Toradol) 15 mg IV Q6 PRN PRN Reason: headache Stop: 09/12/17 18:01 Last Admin: 09/11/17 22:15 Dose: 15 mg Magnesium Hydroxide (Milk Of Magnesia) 30 ml PO BIDP PRN PRN Reason: Constipation Morphine Sulfate (Morphine) 2 mg IV Q2HP PRN PRN Reason: Pain Last Admin: 09/12/17 05:15 Dose: 2 mg Nicotine (Nicoderm) 14 mg TOPICAL DAILY@1000 [facility] Last Admin: 09/11/17 09:31 Dose: Not Given Ondansetron HCl (Zofran) 4 mg IV Q4HP PRN PRN Reason: Nausea And Vomiting Pantoprazole Sodium (Protonix) 40 mg PO QAMAC [facility] Last Admin: 09/12/17 07:51 Dose: 40 mg Vancomycin HCl (Vancomycin Per Pharmacy) [address] [facility] Medical - PN: A/P - Time Spent With Patient Total time spent is greater than 50% in coordination of care (as documented) at patient's floor/unit and/or counseling patient: - Narrative A/P Narrative: A/P Acute Bacterial Meningitis Sepsis Bardycardia Plan Treat with vanco/ rocephin and doxy D3 today culture neg still, follow results and descalate therapy. pt still febrile, Prn tylenol Toradol for now. clinically improving tsh wnl dvt enoxaparin full code Medical - PN: Qual - Stroke Symptom Onset Unknown: No - VTE Deep Vein Thrombosis/Pulmonary Embolism Present on Admission: No
[2017-09-12] MEDS: ENOXAPARIN 40 MG/0.4 ML SYRINGE SQ SCH (08:30)
[2017-09-12] MEDS: cefTRIAXone 2 GM in DEXTROSE 5% IN WATER 50 ML IV SCH ×2 (09:21→21:01)
[2017-09-12 09:41] LABS: Mean Cell Volume 95.4 fL (80.0-100.0); Mean Corpuscular HGB Conc 34.5 g/dL (31.0-36.0); Mean Corpuscular Hemoglobin 32.9 pg (26.0-34.0); Platelet Count 121 K/mcL (140-440); RBC 4.08 M/mcL (4.50-5.90); Red Cell Distribution Width 12.2 % (11.5-14.5)
[2017-09-12 09:42] LABS: ALT/SGPT 13 U/l (0-40); Albumin 3.3 gm/dL (3.2-5.2); Albumin/Globulin Ratio 1.2 (1.0-2.3); Alkaline Phosphatase 35 U/L (39-117); Blood Urea Nitrogen 8 mg/dl (6-20)
[2017-09-12] MEDS: DOXYCYCLINE 100 MG in DEXTROSE 5% IN WATER 100 ML IV SCH ×2 (09:53→22:09)
[2017-09-12] MEDS: NICOTINE 14 MG PATCH TOPICAL SCH (09:54)
[2017-09-12] MEDS: KETOROLAC 15 MG/ML VIAL IV PRN (09:55)
[2017-09-12] MEDS ORDERED: VANCOMYCIN 2,000 MG in 0.9 % SODIUM CHLORIDE 500 ML IV SCH (10:00)
[2017-09-12 11:00] LABS: Band Neutrophils % 4 % (0-10); Lymphocytes % 26 % (15-49); Monocytes % (Manual) 9 % (1-12); Platelet Estimate DECREASED (NORMAL); RBC Morphology NORMAL (NORMAL); Segmented Neutrophils % 55 % (38-78)
[2017-09-12] MEDS ORDERED: KETOROLAC 15 MG/ML VIAL IV PRN (13:30)
[2017-09-12] MEDS ORDERED: ONDANSETRON 4 MG/2 ML VIAL IV PRN (13:30)
[2017-09-12] MEDS ORDERED: VANCOMYCIN PER PHARMACY IV SCH (13:30)
[2017-09-12] MEDS ORDERED: ACETAMINOPHEN 1,000 MG/100 ML BOTTLE IV PRN (13:30)
[2017-09-12] MEDS: VANCOMYCIN 1,500 MG in 0.9 % SODIUM CHLORIDE 500 ML IV SCH (13:40)
[2017-09-12] MEDS: VANCOMYCIN 2,000 MG in 0.9 % SODIUM CHLORIDE 500 ML IV SCH (22:09)
[2017-09-13] MEDS: HYDROcodone/APAP 5/325MG TABLET PO PRN ×3 (00:34→08:45)
[2017-09-13] MEDS: 0.9 % SODIUM CHLORIDE 1,000 ML IV SCH ×3 (05:53→22:29)
[2017-09-13 06:09] LABS: Mean Cell Volume 95.4 fL (80.0-100.0); Mean Corpuscular HGB Conc 34.1 g/dL (31.0-36.0); Mean Corpuscular Hemoglobin 32.5 pg (26.0-34.0); Platelet Count 140 K/mcL (140-440); RBC 4.06 M/mcL (4.50-5.90); Red Cell Distribution Width 12.6 % (11.5-14.5)
[2017-09-13 06:27] LABS: ALT/SGPT 13 U/l (0-40); Albumin 3.1 gm/dL (3.2-5.2); Albumin/Globulin Ratio 1.1 (1.0-2.3); Alkaline Phosphatase 30 U/L (39-117); Blood Urea Nitrogen 5 mg/dl (6-20)
[2017-09-13 07:48] LABS: Band Neutrophils % 2 % (0-10); Eosinophils % (Manual) 2 % (0-7); Lymphocytes % 42 % (15-49); Monocytes % (Manual) 5 % (1-12); Platelet Estimate NORMAL (NORMAL); RBC Morphology NORMAL (NORMAL); Segmented Neutrophils % 49 % (38-78)
[2017-09-13] MEDS: PANTOPRAZOLE 40 MG TABLET PO SCH (08:47)
[2017-09-13] MEDS: ENOXAPARIN 40 MG/0.4 ML SYRINGE SQ SCH (08:47)
[2017-09-13] MEDS: cefTRIAXone 2 GM in DEXTROSE 5% IN WATER 50 ML IV SCH ×2 (08:48→20:28)
[2017-09-13] MEDS: NICOTINE 14 MG PATCH TOPICAL SCH (09:31)
[2017-09-13] MEDS: DOXYCYCLINE 100 MG in DEXTROSE 5% IN WATER 100 ML IV SCH ×2 (10:12→21:12)
--- NOTE | 2017-09-13 12:52 | Internal Med Progress Note ---
Medical - PN: Subj Patient information: Note initiated : 09/13/17 at 12:50 pm Service Date, if different from initiated Date: [] Patient: Riley Lainez 31 y/o M admitted on 09/10/17 for Weakness/Meningitis. Chief Complaint: [] Interval history: Mr. Lainez is a 31 year old M with no past medical history who presents from a camping trip with 3 days of systemic illness. History is obtained in interviewing the patient, discussing with his colleagues were present in the ED. Patient started getting sick about 3 days ago. He was aching with generalized myalgias, had a severe headache, to 9/10 in intensity. He felt feverish while he was out camping. He had a documented fever to over 102 in the ED. This morning he continued to be feverish, complaining of headache and was more confused and his friends brought him in to be evaluated. He had been camping in [place] with several friends for about 1 week. He had been well up until Thursday. He continues to complain of headache and some neck stiffness, particularly with rotation of the neck. He feels dehydrated, those noted some increased urine output. He's had no nausea or vomiting, no abdominal pain. Has had no diarrhea. He's had no rashes, no ecchymoses. He did help packout a deer, but does not recall any tick bites. No one else on the trip was ill. He has no history of diabetes, chronic liver disease, immunosuppressed state. Location: head and systemic. Severity: severe. Quality: aching. Timing: Onset Thursday. Duration: continuous since onset. Assoc sx: fever. The emergency department, the patient underwent lumbar puncture showing between 800 and 900 nucleated cells (depending upon tube) with polys, lymphocytes and monocytes. Protein is elevated at 64, glucose is normal. The fluid was hazy in appearance. Stain shows gram-positive cocci (no comment on diplococci). He is being admitted for treatment of meningitis. September 11 Patient seen examined, no acute overnight events, reamined febrile but this AM is better, on IV tylenol, and cooling blankets. remains on broad sepctrum abx, clinically better still has headache and some photophobia, but mental status is better as per nursing and patients friends. csf microbiology pending. labs reviewed, wbc mildly elevated today. September 12 Patient seen examined, sitting comfortably in the chair having breakfast, complaints of headache and some photophobia but no other complaints had some constipation and prn milk of mag given. Patient labs reviewed wbc 9.2, improved from yesterday rest unremarkable csf culture still pending Pt remains febrile with Tmax of 102.3 this AM, on prn meds for same ok to d/c isolation september 13 pt doing well, no acute issues still has headaches fever curve better [plan of care reviewed with pt, and his family who were at bedside Pertinent ROS: present headache, No dizziness Denies chest pain, palpitations Denies cough or shortness of breath Denies abdominal pain, nausea or vomiting. - Constitutional Vitals: Vital Signs Temp Pulse Resp BP Pulse Ox 97.8 F 50 L 20 129/75 92 09/13/17 11:00 09/13/17 11:00 09/13/17 11:00 09/13/17 11:00 09/13/17 11:00 Period Temp Pulse Resp BP Sys/Knowles Pulse Ox Last 24 Hr 97.8 F-99.2 F 42-64 12-20 127-151/75-84 92-96 Intake and Output 09/12/17 09/13/17 09/13/17 21:59 05:59 13:59 Intake Total 290 / 290 2200 / 2200 240 / 240 Balance 290 / 290 2200 / 2200 240 / 240 Weight 215 lb 211 lb 3 oz Patient Weight 09/14/17 05:59 Weight 211 lb 3 oz Intake & Output: Intake & Output 09/12/17 09/13/17 09/13/17 21:59 05:59 13:59 Intake Total 290 / 290 2200 / 2200 240 / 240 Balance 290 / 290 2200 / 2200 240 / 240 Weight 215 lb 211 lb 3 oz Intake: IV 50 / 50 1600 / 1600 Sodium Chloride 0.9% 1,000 ml @ 1000 / 1000 125 mls/hr IV .Q8H [facility] Rx#: [id number] Vibramycin 100 mg In Dextrose 5 100 / 100 % in Water 100 ml @ 100 mls/hr IV Q12H [facility] Rx#:[id number] Vancomycin 2,000 mg In Sodium 500 / 500 Chloride 0.9% 500 ml @ 250 mls/ hr IV Q12H [facility] Rx#:[id number] Rocephin 2 gm In Dextrose 5% in 50 / 50 Water 50 ml @ 100 mls/hr IV Q12H [facility] Rx#:[id number] Oral 240 / 240 600 / 600 240 / 240 Other: Meal Breakfast Percent of Meal Consumed 100% Feeding Ability Independent # Voids 1 3 Exam: Constitutional; Afebrile, cooperative, alert, not in distress. Eyes- No icterus, , No periorbital swelling Ears- Ext ear normal, hearing normal to conversation. Neck- Midline trachea, supple Respiratory system: Air Entry equal on both sides, No crackles or wheezing, no rhonchi. CVS- Rate rhythm regular, S1,S2 heard, no gallop, no rub. 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 Medical - PN: Obj Da - Labs CBC & Chem 7: 09/13/17 04:40 09/13/17 04:40 Labs: Abnormal Lab Results 09/13/17 09/13/17 09/12/17 04:40 04:40 04:00 WBC RBC 4.06 L 4.08 L Hgb 13.2 L 13.4 L Hct 38.7 L 38.9 L Plt Count 121 L MPV 10.6 H Reactive Lymphocytes 6 H Platelet Estimate Decreased A BUN 5 L Calcium Alkaline Phosphatase 30 L Albumin 3.1 L 09/12/17 09/11/17 04:00 04:00 WBC 11.3 H RBC 4.06 L Hgb Hct 39.4 L Plt Count 131 L MPV Reactive Lymphocytes Platelet Estimate Decreased A BUN Calcium 8.5 L Alkaline Phosphatase 35 L Albumin Meds: Medications Hydrocodone Bitart/Acetaminophen ([place] 5/325mg) 1 tab PO Q4HP PRN PRN Reason: Pain Last Admin: 09/13/17 08:45 Dose: 1 tab Enoxaparin Sodium (Lovenox) 40 mg SQ DAILY [facility] Last Admin: 09/13/17 08:47 Dose: 40 mg Ceftriaxone Sodium 2 gm/ (Dextrose) 50 mls @ 100 mls/hr IV Q12H [facility] Last Admin: 09/13/17 08:48 Dose: 100 mls/hr Doxycycline Hyclate 100 mg/ (Dextrose) 100 mls @ 100 mls/hr IV Q12H [facility] Last Admin: 09/13/17 10:12 Dose: 100 mls/hr Sodium Chloride (Sodium Chloride 0.9%) 1,000 mls @ 125 mls/hr IV .Q8H [facility] Last Admin: 09/13/17 12:10 Dose: Not Given Acetaminophen (Ofirmev) 1,000 mg in 100 mls @ 200 mls/hr IV Q6HP PRN PRN Reason: PAIN/FEVER > 101 Vancomycin HCl 2,000 mg/ (Sodium Chloride) 500 mls @ 250 mls/hr IV Q12H [facility] Last Infusion: 09/13/17 01:00 Dose: Infused Magnesium Hydroxide (Milk Of Magnesia) 30 ml PO BIDP PRN PRN Reason: Constipation Morphine Sulfate (Morphine) 2 mg IV Q2HP PRN PRN Reason: Pain Nicotine (Nicoderm) 14 mg TOPICAL DAILY@1000 [facility] Last Admin: 09/13/17 09:31 Dose: Not Given Ondansetron HCl (Zofran) 4 mg IV Q4HP PRN PRN Reason: Nausea And Vomiting Pantoprazole Sodium (Protonix) 40 mg PO QAMAC [facility] Last Admin: 09/13/17 08:47 Dose: 40 mg Vancomycin HCl (Vancomycin Per Pharmacy) 1 order IV UD [facility] Medical - PN: A/P - Time Spent With Patient Total time spent is greater than 50% in coordination of care (as documented) at patient's floor/unit and/or counseling patient: - Narrative A/P Narrative: A/P Acute Bacterial Meningitis Sepsis Bardycardia Plan Treat with vanco/ rocephin and doxy D4 today culture neg still, I called ID specialist in [place] who noted that its best to treat with IV abx for 14 days given that gram stain positive and csf picture suggestive of bacterial menigitis. PICC line to be placed anticipate d/c in AM to home with iv abx. will need outpatient follow up wi new pcp and infusion center vs home IV ABX. dvt enoxaparin full code Medical - PN: Qual - Stroke Symptom Onset Unknown: No - VTE Deep Vein Thrombosis/Pulmonary Embolism Present on Admission: No
[2017-09-13] MEDS: VANCOMYCIN 2,000 MG in 0.9 % SODIUM CHLORIDE 500 ML IV SCH ×2 (13:50→22:29)
[2017-09-13] MEDS: ACETAMINOPHEN 325 MG TABLET PO PRN ×2 (16:11→22:35)
[2017-09-14] MEDS: HYDROcodone/APAP 5/325MG TABLET PO PRN (03:45)
[2017-09-14] MEDS: 0.9 % SODIUM CHLORIDE 1,000 ML IV SCH ×2 (05:04→13:49)
[2017-09-14 05:20] LABS: Mean Cell Volume 94.7 fL (80.0-100.0); Mean Corpuscular HGB Conc 33.8 g/dL (31.0-36.0); Platelet Count 129 K/mcL (140-440); RBC 4.24 M/mcL (4.50-5.90); Red Cell Distribution Width 12.7 % (11.5-14.5)
[2017-09-14 06:12] LABS: ALT/SGPT 13 U/l (0-40); Alkaline Phosphatase 32 U/L (39-117); Blood Urea Nitrogen 7 mg/dl (6-20)
[2017-09-14 07:07] LABS: Eosinophils % (Manual) 4 % (0-7); Lymphocytes % 46 % (15-49); Monocytes % (Manual) 8 % (1-12); Platelet Estimate DECREASED (NORMAL); RBC Morphology NORMAL (NORMAL); Segmented Neutrophils % 42 % (38-78)
[2017-09-14] MEDS ORDERED: 0.9 % SODIUM CHLORIDE 10 ML SYRINGE IV PRN (09:07)
[2017-09-14] MEDS: ENOXAPARIN 40 MG/0.4 ML SYRINGE SQ SCH (09:33)
[2017-09-14] MEDS: PANTOPRAZOLE 40 MG TABLET PO SCH (09:33)
[2017-09-14] MEDS: NICOTINE 14 MG PATCH TOPICAL SCH (09:34)
[2017-09-14] MEDS: VANCOMYCIN 2,000 MG in 0.9 % SODIUM CHLORIDE 500 ML IV SCH (10:47)
[2017-09-14] MEDS: DOXYCYCLINE 100 MG in DEXTROSE 5% IN WATER 100 ML IV SCH ×2 (13:48→16:12)
[2017-09-14] MEDS: cefTRIAXone 2 GM in DEXTROSE 5% IN WATER 50 ML IV SCH (13:48)
[2017-09-14] MEDS ORDERED: DOXYCYCLINE HYCLATE 100 MG TABLET.ORL PO SCH (15:45)
--- NOTE | 2017-09-14 16:37 | Discharge Summary ---
Medical - DS: Prov Patient information: Note initiated : 09/14/17 at 4:31 pm Service Date, if different from initiated Date: [] Patient: Riley Lainez 31 y/o M admitted on 09/10/17 for Weakness/Meningitis. Chief Complaint: [] Date of admission: 09/10/17 13:04 Discharge date: 09/14/17 Admitting clinician: Sally Sung Consults: 09/10/17 11:36 Consult to Physician [CONS] Stat Comment: Consulting Provider: Sally Sung Reason For Exam: Physician to Consult Discharging clinician: Radhika Jimenez Medical - DS: Meds - Discharge Medications Prescriptions: Doxycycline Hyclate 100 mg PO BID #20 tablet.orl Active and Home Medications: Home Medications No Known Home Meds [No Known Home Meds] 09/10/17 [History Confirmed 09/10/17 Last Taken Unknown] Medical - DS: Hosp Hospital course: Mr. Lainez is a 31 year old M with no past medical history who presents from a camping trip with 3 days of systemic illness. History is obtained in interviewing the patient, discussing with his colleagues were present in the ED. Patient started getting sick about 3 days ago. He was aching with generalized myalgias, had a severe headache, to 9/10 in intensity. He felt feverish while he was out camping. He had a documented fever to over 102 in the ED. This morning he continued to be feverish, complaining of headache and was more confused and his friends brought him in to be evaluated. He had been camping in [place] with several friends for about 1 week. He had been well up until Thursday. He continues to complain of headache and some neck stiffness, particularly with rotation of the neck. He feels dehydrated, those noted some increased urine output. He's had no nausea or vomiting, no abdominal pain. Has had no diarrhea. He's had no rashes, no ecchymoses. He did help pack out a deer, but does not recall any tick bites. No one else on the trip was ill. He has no history of diabetes, chronic liver disease, immunosuppressed state. The emergency department, the patient underwent lumbar puncture showing between 800 and 900 nucleated cells (depending upon tube) with polys, lymphocytes and monocytes. Protein is elevated at 64, glucose is normal. The fluid was hazy in appearance. Stain shows gram-positive cocci (no comment on diplococci). He is being admitted for treatment of meningitis. meningitis: Treated with IV rocephin, IV doxycycline and IV vancomycin, patient responded to the treatment well, unfortunately the patients cultures remained negative at 72 hrs. I reviewed the patients case with Infectious disease at [facility] who advised to treat with antibiotics for total of 14 days. patient headache, photophobia and fever had resolved on the day of discharge He has a picc line in place and he will be discharged home with outpatient IV antibiotics with rocephin and vancomycin, Oral doxycycline to complete his course of antitbiotics Unfortunately the patient did not have a primary care provider at the time of admission. Dr Paul Mantilla, had graciously accepted to see the patient in [place] to follow up on his post hospital care and hopefully be his primary going forward. Discharge diagnosis: Acute Bacterial Meningitis. - Time Spent with Patient Total time spent providing and/or coordinating discharge services: Greater than 30 minutes Medical - DS: Exam - Constitutional Vitals: Vital Signs Temp Pulse Resp BP Pulse Ox 09/14/17 15:38 97.8 F 41 L 14 120/73 92 09/14/17 12:28 97.9 F 16 127/64 93 09/14/17 06:21 97.6 F 16 123/68 93 09/14/17 03:35 98.3 F 53 L 16 120/75 95 09/14/17 00:10 99.3 F H 57 L 16 147/87 93 09/13/17 20:35 99.2 F H 49 L 16 136/83 93 Intake and Output 09/14/17 09/14/17 09/14/17 05:59 13:59 21:59 Intake Total 700 / 700 200 / 200 Balance 700 / 700 200 / 200 Intake: IV 600 / 600 Vibramycin 100 mg In Dextrose 5 100 / 100 % in Water 100 ml @ 100 mls/hr IV Q12H MEGAN Rx#:[id number] Vancomycin 2,000 mg In Sodium 500 / 500 Chloride 0.9% 500 ml @ 250 mls/ hr IV Q12H MEGAN Rx#:[id number] Oral 100 / 100 200 / 200 Other: # Voids 1 Additional comments: Constitutional; Afebrile, cooperative, alert, not in distress. Eyes- No icterus, , No periorbital swelling Ears- Ext ear normal, hearing normal to conversation. Neck- Midline trachea, supple Respiratory system: Air Entry equal on both sides, No crackles or wheezing, no rhonchi. CVS- Rate rhythm regular, S1,S2 heard, no gallop, no rub. Abdomen- Soft nontender abdomen, no organomegaly, no tenderness, no guarding or rigidity, [employer]- AOOx3, moving all extremities, no gross focal deficit noted. Medical - DS: Data Procedures and tests throughout hospitalization: chest x ray IMPRESSION: Negative LP Successful fluoroscopic guided lumbar puncture yielding 9 cc of clear CSF. No apparent complication Labs on day of discharge: Labs from last 24 hours 09/14/17 09/14/17 04:15 04:15 WBC 5.0 RBC 4.24 L Hgb 13.6 Hct 40.1 L MCV 94.7 MCH 32.0 MCHC 33.8 RDW 12.7 Plt Count 129 L MPV 9.9 Total Counted 100 Seg Neutrophils % 42 Band Neutrophils % Not Reportable Lymphocytes % 46 Monocytes % (Manual) 8 Eosinophils % (Manual) 4 Platelet Estimate Decreased A RBC Morphology Normal Sodium 142 Potassium 4.2 Chloride 104 Carbon Dioxide 28 Anion Gap 10.0 BUN 7 Creatinine 0.7 GFR Calculation 126 Glucose 98 Calcium 8.9 Total Bilirubin 0.2 AST 15 ALT 13 Alkaline Phosphatase 32 L Total Protein 6.0 Albumin 3.0 L Globulin 3.0 Albumin/Globulin Ratio 1.0 Preliminary micro results at discharge 09/10/17 07:53 Blood Culture - Preliminary Blood 09/10/17 07:50 Blood Culture - Preliminary Blood Medical - DS: A/P - Patient/Caregiver Discharge Instructions Activity: increase activity as tolerated Diet: Regular Diet Additional Instructions: Dr Jere Mantilla APPOINTMENT: Thursday09/15/17 @ 10:10AM ADDRESS: The [id number] [place] [address] APPOINTMENT: Outpatient antibiotics @ 2: 30pm [address] [place], [place] Please follow up with your new pcp as outpatient. Go to the ER if any headache, fever or worsening symptoms. Instructions for Outpatient Antibiotics Vancomycin 2000mg q12hrs, monitor levels, Pharmacy to titrate to keep Trough levels between 15-20, for total of 10 days starting tomorrow Rocephin 2gms q12 hrs for total of 10 days starting tomorrow. patient will also be on oral doxycycline 100mg twice daily for 10 days PICC line care as per protocol D/C picc line after the last dose of antibiotic. - Follow up Plan Disposition: Home, Self-Care Prognosis: Good Rehab Potential: Good I certify that the patient requires SNF services: No Overall status at discharge: patient is progressing back to baseline Medical - DS: Qual - VTE Deep Vein Thrombosis/Pulmonary Embolism Present on Admission: No
== END 2017-09-14 17:09 | disposition home or self-care (01) | DRG 871 ==
LOC: ED 07:02 → ICU 13:04 → MEDSUR 09-12 13:23
PROVIDERS: ADMIT Internal Medicine; ATTEND Internal Medicine